=== PATIENT | female | born 1975 | race Asian ===

== ENCOUNTER → 2020-07-08 | Outpatient (CLI) | payer OTHER ==
[2020-07-08 09:45] LABS: HEMATOCRIT 38.9 % (37.0-47.0); HEMOGLOBIN 12.3 gm/dL (12.0-15.0); MCH 21.4 pg (26.0-34.0); MCHC 31.5 g/dL (28.0-37.0); MPV 7.6 fl. (7.2-11.1); RBC 5.73 mil/uL (4.20-5.00); RDW-CV 15.4 % (10.5-14.5)
== END ==
LOC: M.LAB 09:19
PROVIDERS: ATTEND Podiatrist
DX: Z01.812 Encounter for preprocedural laboratory examination (principal); Z01.818 Encounter for other preprocedural examination

== ENCOUNTER → 2020-07-14 | Outpatient (CLI) | payer OTHER | LOC: M.LAB 09:34 | PROVIDERS: ATTEND Podiatrist | DX: Z01.812 Encounter for preprocedural laboratory examination (principal); Z20.828 Contact with and (suspected) exposure to other viral communicable diseases ==